=== PATIENT | female | born 1980 | race Caucasian/White ===

== ENCOUNTER 2019-07-28 05:10 | Day surgery (SDC) | payer OTHER | END 2019-07-28 18:15 | disposition home or self-care (01) | LOC: CIR.AMB 05:10 | PROVIDERS: ATTEND Surgery | DX: C50.911 Malignant neoplasm of unspecified site of right female breast (principal); Z90.11 Acquired absence of right breast and nipple ==

== ENCOUNTER 2019-08-01 18:24 | Emergency (ER) | payer OTHER ==
[~2019-08-01] VITALS: Ht 157.5 cm; Wt 65.8 kg
[2019-08-01] MEDS ORDERED: BACTRIM DS TAB1 EACH PO (18:34)
[2019-08-01] MEDS ORDERED: ENDOCET 5-3251 EACH PO (18:35)
== END 2019-08-02 09:36 | disposition home or self-care (01) ==
LOC: ER 18:24
DX: G89.18 Other acute postprocedural pain (principal); M79.601 Pain in right arm; M79.631 Pain in right forearm; I73.9 Peripheral vascular disease, unspecified

== ENCOUNTER 2019-11-24 06:05 | Day surgery (SDC) | payer OTHER ==
[~2019-11-24 06:05] MED LIST: ARIMIDEX; BACTRIM DS TAB1 EACH PO; ENDOCET 5-3251 EACH PO
== END 2019-11-24 16:30 | disposition home or self-care (01) ==
LOC: CIR.AMB 06:05
PROVIDERS: ATTEND Surgery
DX: N60.82 Other benign mammary dysplasias of left breast (principal); Z15.01 Genetic susceptibility to malignant neoplasm of breast; Z90.11 Acquired absence of right breast and nipple

== ENCOUNTER 2020-01-15 12:23 | Outpatient (CLI) | payer OTHER | END 2020-01-15 12:34 | disposition home or self-care (01) | LOC: SONOGRAMA 12:23 | PROVIDERS: ATTEND Surgery | DX: N61.1 Abscess of the breast and nipple (principal); C50.411 Malignant neoplasm of upper-outer quadrant of right female breast ==

== ENCOUNTER 2020-02-19 12:09 | Outpatient (CLI) | payer OTHER | END 2020-02-19 12:13 | disposition home or self-care (01) | LOC: SONOGRAMA 12:09 | PROVIDERS: ATTEND Surgery | DX: N63.31 Unspecified lump in axillary tail of the right breast (principal); N61.1 Abscess of the breast and nipple; N60.11 Diffuse cystic mastopathy of right breast; N60.12 Diffuse cystic mastopathy of left breast ==

== ENCOUNTER 2020-04-02 10:07 | Outpatient (CLI) | payer OTHER | END 2020-04-02 10:55 | disposition home or self-care (01) | LOC: SONOGRAMA 10:07 | PROVIDERS: ATTEND Surgery | DX: N60.02 Solitary cyst of left breast (principal); N60.11 Diffuse cystic mastopathy of right breast; N60.12 Diffuse cystic mastopathy of left breast; N64.59 Other signs and symptoms in breast ==